=== PATIENT | female | born 1980 | race Caucasian/White ===

== ENCOUNTER 2016-06-19 12:34 | Emergency (ER) | payer BC, MEDICAID, OTHER ==
[~2016-06-19] VITALS: Ht 165.1 cm; Wt 72.6 kg
[2016-06-19] MEDS: IBUPROFEN 800 MG TABLET PO ONE (13:05)
[2016-06-19 13:10] LABS: *BILIRUBIN,URIN NEGATIVE (NEGATIVE); *BLOOD, URINE 3+ (NEGATIVE); *CLARITY,URINE CLEAR (CLEAR); *COLOR,URINE YELLOW (YELLOW); *KETONES,URINE NEGATIVE (NEGATIVE); *PROTEIN,URINE NEGATIVE (NEGATIVE); *UROBILINOGEN,URINE 0.2 E.U./dl (NORMAL); NITRITE, URINE NEGATIVE (NEGATIVE); UGLUCOSE NEGATIVE (NEGATIVE)
[2016-06-19] MEDS ORDERED: IBUPROFEN 800 MG TABLET ONE (13:13)
[2016-06-19 13:14] LABS: *URINE HCG, QUAL NEGATIVE (NEGATIVE)
[2016-06-19 13:20] LABS: LEUKOCYTE ESTERASE ,URINE TRACE (NEGATIVE)
[2016-06-19 13:24] LABS: RBC,URINE 0-3 /HPF (0-3); WBC,URINE 0-3 /HPF (0-3)
[2016-06-19 13:25] LABS: BACTERIA,URINE NONE SEEN /HPF (NONE SEEN); SQUAMOUS EPITHELIAL CELL,UR FEW /HPF (NONE SEEN)
--- NOTE | 2016-06-19 14:30 | NUR ---
Patient discharged to home in stable conditon. Written and verbal after care instructions given. Patient verbalizes understanding of instructions. Addendum: 06/19/16 at 1437 by GONZALO pt says feels better, deneis any pain or nausea at this pont.
--- NOTE | 2016-06-19 14:35 | NUR ---
pt did nort wait for the copy of images to be ready
[2016-06-19 14:38] VITALS: BP 111/63
== END 2016-06-19 14:39 | disposition home or self-care (01) ==
LOC: ER 12:34
DX: M54.5 Low back pain (principal); S93.402A Sprain of unspecified ligament of left ankle, initial encounter; S80.02XA Contusion of left knee, initial encounter; S80.01XA Contusion of right knee, initial encounter; W18.30XA Fall on same level, unspecified, initial encounter; Y93.89 Activity, other specified; Y99.8 Other external cause status; Y92.89 Other specified places as the place of occurrence of the external cause
CPT/HCPCS: 72131; 73562 ×2; 73610; 81001; 84703; 99285; A4663; 73560

== ENCOUNTER 2016-12-27 11:33 | Emergency (ER) | payer MEDICAID ==
[~2016-12-27] VITALS: Ht 167.6 cm; Wt 64.4 kg
[2016-12-27] MEDS ORDERED: IBUP-1957 PO (11:42)
--- NOTE | 2016-12-27 12:11 | NUR ---
Patient ambulated from ER bed 5A gurney to bathroom unassisted with slow steady gait- pending urine sample@this time.
[2016-12-27] MEDS ORDERED: PROMETHAZINE HCL 25 MG/1 ML VIAL IM ONE (12:15)
[2016-12-27] MEDS ORDERED: HYDROMORPHONE 1 MG/1 ML DISP.SYRIN IM ONE (12:15)
[2016-12-27] MEDS ORDERED: HYDROMORPHONE 2 MG/1 ML DISP.SYRIN ONE (12:17)
[2016-12-27] MEDS ORDERED: PROMETHAZINE HCL 25 MG/1 ML VIAL ONE ×2 (12:17→12:19)
[2016-12-27 12:20] LABS: *BILIRUBIN,URIN NEGATIVE (NEGATIVE); *BLOOD, URINE 2+ (NEGATIVE); *CLARITY,URINE CLEAR (CLEAR); *COLOR,URINE YELLOW (YELLOW); *KETONES,URINE NEGATIVE (NEGATIVE); *PROTEIN,URINE NEGATIVE (NEGATIVE); *UROBILINOGEN,URINE 0.2 E.U./dl (NORMAL); LEUKOCYTE ESTERASE ,URINE 2+ (NEGATIVE); NITRITE, URINE NEGATIVE (NEGATIVE); UGLUCOSE NEGATIVE (NEGATIVE)
[2016-12-27 12:21] LABS: *URINE HCG, QUAL NEGATIVE (NEGATIVE)
[2016-12-27 12:29] LABS: BACTERIA,URINE FEW /HPF (NONE SEEN); RBC,URINE 0-3 /HPF (0-3); SQUAMOUS EPITHELIAL CELL,UR FEW /HPF (NONE SEEN)
--- NOTE | 2016-12-27 12:37 | NUR ---
Patient is resting comfortably in bed with eyes closed. PATIENT IS PAIN FREE AT THIS TIME.
--- NOTE | 2016-12-27 12:43 | NUR ---
Patient discharged to home in stable conditon. Written and verbal after care instructions given to patient and spouse. Patient and family verbalized understanding of instructions. PATIENT IS PAIN FREE AT THIS TIME.
== END 2016-12-27 12:44 | disposition home or self-care (01) ==
LOC: ER 11:33
DX: N39.0 Urinary tract infection, site not specified (principal)
CPT/HCPCS: 81001; 84703; 96372 ×2; 99284; A4663; J1170; J2550 ×2